=== PATIENT | male | born 1975 | race American Indian/Alaskan Native ===

== ENCOUNTER 2019-07-18 22:56 | Emergency (ER) | payer BC ==
[2019-07-18 23:04] VITALS: BP 140/89
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
--- NOTE | 2019-07-19 02:30 | XRay Report ---
HISTORY:left shoulder pain COMPARISON: None. TECHNIQUE: AP lateral and obliques views were obtained FINDINGS: Bones: No fracture or dislocation. Joint spaces: Maintained. Soft tissues: No significant abnormality. Additional findings: None. IMPRESSION: 1. No significant abnormality. Signer Name: Killian Pandya MD Signed: 07/19/2019 2:26 AM Workstation Name: [id number]
--- NOTE | 2019-07-19 02:30 | XRay Report ---
HISTORY:right arm pain COMPARISON: None. TECHNIQUE: AP lateral and obliques views were obtained FINDINGS: Bones: No fracture or dislocation. Joint spaces: Maintained. Soft tissues: No significant abnormality. Additional findings: None. IMPRESSION: 1. No significant abnormality. Signer Name: Killian Pandya MD Signed: 07/19/2019 2:25 AM Workstation Name: [id number]
== END 2019-07-19 03:01 | disposition home or self-care (01) ==
LOC: ED 22:56
DX: M79.631 Pain in right forearm (principal); M25.512 Pain in left shoulder; F17.200 Nicotine dependence, unspecified, uncomplicated; Z98.890 Other specified postprocedural states; Z79.899 Other long term (current) drug therapy
CPT/HCPCS: 99283

== ENCOUNTER 2019-10-21 02:22 | Emergency (ER) | payer BC ==
--- NOTE | 2019-10-21 05:21 | Emergency Department Report ---
HPI - General Chief Complaint: Extremity Injury, Lower Time Seen by Provider: 10/21/19 05:20 - HPI HPI: This is a 44-year-old male here report that he stubbed his left foot at his great toe today and it is hurting him. Pain is throbbing and worse with mo vement. Better with rest. Denies taking any medication. Denies any fall. Denies any numbness or tingling. ED Past Medical Hx - Past Medical History Previous Medical History?: Yes - Surgical History Past Surgical History?: Yes Additional Surgical History: left shoulder surgery - Family History Family history: no significant - Social History Smoking Status: Current Every Day Smoker Substance Use Type: Alcohol - Medications Home Medications: Home Medications Medication Instructions Recorded Confirmed Last Taken Type Ibuprofen [Motrin 800 MG tab] 800 mg PO Q8HR PRN #20 tablet 07/19/19 Unknown Rx Ibuprofen [Motrin] 800 mg PO Q8HR PRN #12 tablet 10/21/19 Unknown Rx ED Review of Systems ROS: Stated complaint: FOOT PAIN Other details as noted in HPI Constitutional: denies: chills, fever Respiratory: denies: cough, shortness of breath, wheezing Cardiovascular: denies: chest pain, palpitations Gastrointestinal: denies: nausea, vomiting Musculoskeletal: joint swelling, arthralgia. denies: back pain, myalgia Skin: denies: rash Neurological: denies: numbness, paresthesias Physical Exam - Physical Exam Vital Signs: Vital Signs 10/21/19 02:55 Temperature 97.3 F L Pulse Rate 96 H Respiratory 18 Rate Blood Pressure 126/75 O2 Sat by Pulse 99 Oximetry General: This is a 44-year-old male well-nourished well-developed in no acute distress. Patient is nontoxic in appearance Physical Exam: Head: Normocephalic atraumatic. Lungs: Clear to auscultated bilaterally, no rhonchi wheezes or rales. No use of accessory muscles. Neck: Supple, no tracheal deviation. No C-spine tenderness and full range of motion. CV: S1, S2. Regular rate . Skin: Clean dry and intact. No rash no lesion Extremity: No cce. + 2 pulses in all extremities, no neurovascular compromise except patient with mild swelling to the left great toe with tenderness to palpate and also painful with movement. No abrasion or laceration noted. No bony deformity noted Mood: Normal mood and behavior Back: Nontender to palpate to vertebral spine from C-spine to L-spine including sacral area. No paraspinal tenderness and no CVA tenderness. ED Course Vital Signs 10/21/19 02:55 Temperature 97.3 F L Pulse Rate 96 H Respiratory 18 Rate Blood Pressure 126/75 O2 Sat by Pulse 99 Oximetry - Reevaluation(s) Reevaluation #1: 10/21/19 06:05 Patient received Toradol 60 mg IM in emergency room. No acute distress. - Orthopedic Splinting/Casting Injury #1 Side: left Lower Extremity Injury Location: foot Lower Extremity Immobilizer: post-op shoe ED Medical Decision Making - Radiology Data Radiology results: report reviewed X-ray of left foot 3 views dictated by radiologist and report reviewed by myself. Please see be details below Findings [facility] [address] [place] [address] XRay Report Signed Patient: CHARLIE MENA MR#: [id number] : 1975 Acct:[id number] Age/Sex: 44 / M ADM Date: 10/21/19 Loc: ED Attending Dr: Ordering Physician: DEJA TOVAR Date of Service: 10/21/19 Procedure(s): XR foot 3+V LT Accession Number(s): [id number] cc: DEJA TOVAR Fluoro Time In Minutes: LEFT FOOT 3 VIEWS INDICATION / CLINICAL INFORMATION: Left foot injury with pain.... inside of foot/big toe. COMPARISON: None available. FINDINGS: BONES / JOINT(S): There is mild hallux valgus. There is no evidence of fracture or dislocation. SOFT TISSUES: There is mild soft tissue swelling along the medial aspect of the first metatarsal head/metatarsophalangeal joint. ADDITIONAL FINDINGS: None. Signer Name: Harry Wong MD Signed: 10/21/2019 5:54 AM Workstation Name: [id number] Transcribed By: RT Dictated By: Harry Wong MD Electronically Authenticated By: Harry Wong MD Signed Date/Time: 10/21/19 0554 DD/ 0552 TD/TT: - Medical Decision Making 44-year-old here after stepping is left foot great toe. He is complaining of pain and swelling to great toe. Physical findings shows mild swelling with tenderness to palpate and pain with range of motion. X-ray of left foot 3 view dictated by radiologist and report reviewed by myself. Shows mild soft tissue swelling at left great toe area. Mild hallux valgus but no fracture or dislocation. Patient was given pain medication emergency room with some relief of pain. Postop shoe given and patient given prescription for Motrin and to follow-up with orthopedic in 2 to 3 days. He voiced understanding - Differential Diagnosis Fracture versus dislocation, contusion, MSK pain Critical care attestation.: If time is entered above; I have spent that time in minutes in the direct care of this critically ill patient, excluding procedure time. ED Disposition Clinical Impression: Contusion of left great toe without damage to nail Qualifiers: Encounter type: initial encounter Qualified Code(s): S90.112A - Contusion of left great toe without damage to nail, initial encounter Disposition: - TO HOME OR SELFCARE Is pt being admited?: No Does the pt Need Aspirin: No Condition: Stable Instructions: Contusion in Adults (ED), Arthralgia (ED), RICE Therapy (ED) Additional Instructions: Please follow-up with orthopedic doctor in 2 to 3 days Take Motrin as directed with please do not take this medication on empty stomach as it can cause upset stomach. See discharge instruction and rice therapy Wear postop shoe to left foot until seen by orthopedic doctor If your condition worsens, return to the emergency room Referrals: CRYSTAL ROLDAN MD [Primary Care Provider] - 10/23/19 HARRY GUAMAN MD [Staff Physician] - 2-3 Days Forms: Work/School Release Form(ED)
[2019-10-21] MEDS ORDERED: KETOROLAC 60 MG/2 ML INJ IM ONE (05:22)
--- NOTE | 2019-10-21 05:58 | XRay Report ---
LEFT FOOT 3 VIEWS INDICATION / CLINICAL INFORMATION: Left foot injury with pain.... inside of foot/big toe. COMPARISON: None available. FINDINGS: BONES / JOINT(S): There is mild hallux valgus. There is no evidence of fracture or dislocation. SOFT TISSUES: There is mild soft tissue swelling along the medial aspect of the first metatarsal head /metatarsophalangeal joint. ADDITIONAL FINDINGS: None. Signer Name: Mateo Wong MD Signed: 10/21/2019 5:54 AM Workstation Name: [id number]
[2019-10-21 06:26] VITALS: BP 119/86
== END 2019-10-21 06:20 | disposition home or self-care (01) ==
LOC: ED 02:22
DX: S90.112A Contusion of left great toe without damage to nail, initial encounter (principal); F17.200 Nicotine dependence, unspecified, uncomplicated; Z98.890 Other specified postprocedural states; X58.XXXA Exposure to other specified factors, initial encounter; Y93.89 Activity, other specified; Y92.89 Other specified places as the place of occurrence of the external cause; Y99.8 Other external cause status
CPT/HCPCS: 73630; 96372; 99283; J1885

== ENCOUNTER 2019-11-25 21:32 | Emergency (ER) | payer SELFPAY ==
[2019-11-25] MEDS ORDERED: ASPIRIN 325 MG TAB PO ONE (21:42)
[2019-11-25] MEDS ORDERED: SODIUM CHLORIDE 0.9% 1000 ML 1,000 ML IV ONE (21:58)
--- NOTE | 2019-11-25 21:58 | Emergency Department Report ---
ED Chest Pain HPI - General Chief Complaint: Chest Pain Stated Complaint: CHEST PAIN Time Seen by Provider: 11/25/19 21:49 Source: patient Mode of arrival: Ambulatory Limitations: No Limitations - History of Present Illness Initial Comments: 44-year-old male presents to ED with palpitations, dizziness, chest pressure. Onset 2 hours ago after playing football. Patient denies pain, he states what he feels is pressure. Patient does report history of anxiety, for which he takes BuSpar. Patient admits to alcohol and cocaine use on yesterday. States did not get much sleep last night. Denies any drug use today. Patient denies shortness of breath, fever, cough, nausea or vomiting, leg pain or swelling. Patient denies any known contact with anyone who has tested positive for COVID- 19. MD Complaint: other -: hour(s) (2) Onset: during exertion Pain Location: substernal Pain Radiation: RUE Severity: moderate Quality: pressure Consistency: constant Improves With: nothing Worsens With: nothing re: denies: nausea, vomting, diaphoresis, dyspnea Other Symptoms: palpitations. denies: cough, fever, syncope, leg swelling - Related Data Previous Rx's Medication Instructions Recorded Last Taken Type Ibuprofen [Motrin 800 MG tab] 800 mg PO Q8HR PRN #20 tablet 07/19/19 Unknown Rx Ibuprofen [Motrin] 800 mg PO Q8HR PRN #12 tablet 10/21/19 Unknown Rx Allergies Allergy/AdvReac Type Severity Reaction Status Date / Time No Known Allergies Allergy Verified 11/25/19 21:41 Heart Score - HEART Score History: Slightly suspicious EKG: Normal Age: 45-65 Risk factors: 1-2 risk factors Troponin: < normal limit HEART Score: 2 ED Review of Systems ROS: Stated complaint: CHEST PAIN Other details as noted in HPI Comment: All other systems reviewed and negative Constitutional: denies: chills, fever Respiratory: denies: cough, shortness of breath Cardiovascular: chest pain, palpitations Gastrointestinal: denies: nausea, vomiting ED Past Medical Hx - Past Medical History Previous Medical History?: No - Surgical History Past Surgical History?: Yes Additional Surgical History: left shoulder surgery - Social History Smoking Status: Current Every Day Smoker Substance Use Type: Alcohol, Cocaine - Medications Home Medications: Home Medications Medication Instructions Recorded Confirmed Last Taken Type Ibuprofen [Motrin 800 MG tab] 800 mg PO Q8HR PRN #20 tablet 07/19/19 Unknown Rx Ibuprofen [Motrin] 800 mg PO Q8HR PRN #12 tablet 10/21/19 Unknown Rx ED Physical Exam - General Limitations: No Limitations General appearance: alert, in no apparent distress - Head Head exam: Present: atraumatic, normocephalic - Eye Eye exam: Present: normal appearance, PERRL, EOMI - ENT ENT exam: Present: mucous membranes moist - Neck Neck exam: Present: normal inspection - Respiratory Respiratory exam: Present: normal lung sounds bilaterally. Absent: respiratory distress - Cardiovascular Cardiovascular Exam: Present: normal rhythm, tachycardia - GI/Abdominal GI/Abdominal exam: Present: soft. Absent: distended, tenderness - Extremities Exam Extremities exam: Present: normal inspection - Neurological Exam Neurological exam: Present: alert, oriented X3 - Psychiatric Psychiatric exam: Present: normal affect, normal mood - Skin Skin exam: Present: warm, dry, intact, normal color ED Course Vital Signs 11/25/19 11/25/19 11/25/19 21:39 21:49 22:00 Temperature 97.3 F L Pulse Rate 134 H 114 H Respiratory 18 11 L Rate Blood Pressure 172/103 143/99 147/95 O2 Sat by Pulse 98 96 95 Oximetry 11/25/19 11/25/19 11/25/19 22:15 22:30 22:45 Temperature Pulse Rate 110 H 108 H 108 H Respiratory 21 22 13 Rate Blood Pressure 133/92 132/92 135/89 O2 Sat by Pulse 95 95 Oximetry 11/25/19 11/25/19 11/25/19 23:00 23:15 23:30 Temperature Pulse Rate 109 H 102 H 99 H Respiratory 29 H 26 H 18 Rate Blood Pressure 145/96 136/90 146/101 O2 Sat by Pulse 94 97 Oximetry 11/25/19 11/25/19 11/26/19 23:45 23:46 00:00 Temperature Pulse Rate 91 H 95 H 89 Respiratory 14 18 12 Rate Blood Pressure 138/95 138/95 134/93 O2 Sat by Pulse 98 97 97 Oximetry 11/26/19 11/26/19 11/26/19 00:15 00:30 00:45 Temperature Pulse Rate 90 83 85 Respiratory 17 16 12 Rate Blood Pressure 141/95 131/91 138/93 O2 Sat by Pulse 97 96 Oximetry 11/26/19 11/26/19 11/26/19 01:00 01:15 01:30 Temperature Pulse Rate 84 84 Respiratory 17 22 Rate Blood Pressure 136/91 141/97 141/97 O2 Sat by Pulse 99 95 92 Oximetry 11/26/19 02:17 Temperature 97.3 F L Pulse Rate 84 Respiratory 22 Rate Blood Pressure O2 Sat by Pulse 92 Oximetry ED Medical Decision Making - Lab Data Result diagrams: 11/25/19 21:47 11/25/19 21:47 - Radiology Data Radiology results: report reviewed, image reviewed - Medical Decision Making 44 yo M w/ chest pain 1 day after snorting cocaine. EKG shows no ST changes. Troponin negative x 2, CXR normal. D-dimer negative. Tachycardia resolved. Pt feeling much better at this time. Outpt f/u advised. Return precautions given. - Differential Diagnosis ACS, anxiety, PE Critical care attestation.: If time is entered above; I have spent that time in minutes in the direct care of this critically ill patient, excluding procedure time. ED Disposition Clinical Impression: Palpitations, Chest pain Disposition: TO HOME OR SELFCARE Is pt being admited?: No Condition: Stable Instructions: Chest Pain (ED), Palpitations (ED), Anxiety (ED) Referrals: PRIMARY CARE [Primary Care Provider] - 3-5 Days [facility] [Provider Group] - 3-5 Days Time of Disposition: 01:27
--- NOTE | 2019-11-25 22:10 | XRay Report ---
CHEST 1 VIEW INDICATION: Chest Pain COMPARISON: None FINDINGS: Support devices: None Heart: Normal Lungs/Pleura: No acute pulmonary or pleural findings. IMPRESSION: 1. No acute disease. Signer Name: Carlo Ozuna MD Signed: 11/25/2019 10:06 PM Workstation Name: [id number]
[2019-11-25 22:17] LABS: Basophils # (Auto) 0.1 K/mm3 (0.0-0.1); Basophils % (Auto) 0.9 % (0.0-1.8); Eosinophils % (Auto) 0.2 % (0.0-4.3); Hematocrit 45.6 % (35.5-45.6); Hemoglobin 15.6 gm/dl (11.8-15.2); Lymphocytes # (Auto) 1.6 K/mm3 (1.2-5.4); Lymphocytes % (Auto) 18.8 % (13.4-35.0); Mean Corpuscular HGB Conc 34 % (32-34); Mean Corpuscular Volume 93 fl (84-94); Monocytes # (Auto) 0.6 K/mm3 (0.0-0.8); Monocytes % (Auto) 7.2 % (0.0-7.3); Platelet Count 148 K/mm3 (140-440); Red Blood Count 4.93 M/mm3 (3.65-5.03); Red Cell Distribution Width 14.1 % (13.2-15.2)
[2019-11-25 22:26] LABS: INR 0.98 (0.87-1.13); Partial Thromboplastin Time 28.3 Sec. (24.2-36.6)
[2019-11-25 22:39] LABS: BUN/Creatinine Ratio 16; Blood Urea Nitrogen 21 mg/dL (9-20); Calcium 10.1 mg/dL (8.4-10.2); Hemolysis Index 9
[2019-11-26 02:16] VITALS: BP 141/97
== END 2019-11-26 02:17 | disposition home or self-care (01) ==
LOC: ED 21:32
DX: R07.89 Other chest pain (principal); R00.2 Palpitations; F17.200 Nicotine dependence, unspecified, uncomplicated; F14.10 Cocaine abuse, uncomplicated; Z98.890 Other specified postprocedural states
CPT/HCPCS: 36415; 71045; 80048; 84484; 85025; 85379; 85610; 85730; 93005; 96360; 99284; J7030

== ENCOUNTER 2020-05-09 08:13 | Emergency (ER) | payer SELFPAY ==
[2020-05-09] MEDS ORDERED: ASPIRIN 325 MG TAB PO ONE (08:30)
[2020-05-09 08:55] LABS: Basophils % (Auto) 0.5 % (0.0-1.8); Eosinophils # (Auto) 0.1 K/mm3 (0.0-0.4); Hemoglobin 14.3 gm/dl (11.8-15.2); Lymphocytes # (Auto) 1.6 K/mm3 (1.2-5.4); Lymphocytes % (Auto) 19.5 % (13.4-35.0); Mean Corpuscular HGB Conc 34 % (32-34); Mean Corpuscular Volume 92 fl (84-94); Monocytes # (Auto) 0.6 K/mm3 (0.0-0.8); Monocytes % (Auto) 7.2 % (0.0-7.3); Platelet Count 120 K/mm3 (140-440); Red Blood Count 4.57 M/mm3 (3.65-5.03); Red Cell Distribution Width 13.4 % (13.2-15.2)
[2020-05-09 09:14] LABS: BUN/Creatinine Ratio 15; Blood Urea Nitrogen 18 mg/dL (9-20); Calcium 9.3 mg/dL (8.4-10.2); Hemolysis Index 5
--- NOTE | 2020-05-09 09:51 | XRay Report ---
CHEST 1 VIEW INDICATION / CLINICAL INFORMATION: Chest Pain. COMPARISON: 11/25/2019 FINDINGS: SUPPORT DEVICES: None. HEART / MEDIASTINUM: No significant abnormality. LUNGS / PLEURA: No significant pulmonary or pleural abnormality. No pneumothorax. ADDITIONAL FINDINGS: No significant additional findings. IMPRESSION: No acute disease or interval change from 11/25/2019 Signer Name: Laith Sargent MD FACR Signed: 05/09/2020 9:47 AM Workstation Name: [id number]
--- NOTE | 2020-05-09 11:39 | Emergency Department Report ---
ED Chest Pain HPI - General Chief Complaint: Chest Pain Stated Complaint: CHEST PAIN Time Seen by Provider: 05/09/20 11:23 Source: patient Mode of arrival: Ambulatory Limitations: No Limitations - History of Present Illness Initial Comments: 45-year-old -[place] male with no past medical. Patient presents with chest pain and states that was intermittent and sharp but no pain in the last hour. Patient states that his chest feels much better. He denies any shortness of breath, nausea vomiting, diaphoresis, headache. Patient denies any fever no chills no vomiting no diarrhea. 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 Patient does have a primary care provider Dr. Marie and last saw him about 10 months ago. Patient reports he does not take any medications on a daily basis has no known drug allergies no past medical history but does state that his blood pressure was elevated the last time he saw his primary care provider and he felt that it was not a problem. MD Complaint: chest pain -: This morning Onset: during exertion Pain Location: substernal Pain Radiation: none Severity: mild Severity scale (0 -10): 4 Quality: sharp Consistency: intermittent Improves With: nothing Worsens With: nothing re: denies: nausea, vomting, diaphoresis, dyspnea, sense of impending doom, other Other Symptoms: denies: cough, fever, syncope, rash, acid taste in mouth, leg sw elling Treatments Prior to Arrival: none - Related Data Previous Rx's Medication Instructions Recorded Last Taken Type Ibuprofen [Motrin 800 MG tab] 800 mg PO Q8HR PRN #20 tablet 07/19/19 Unknown Rx Ibuprofen [Motrin] 800 mg PO Q8HR PRN #12 tablet 10/21/19 Unknown Rx amLODIPine 5 mg PO DAILY #30 tab 05/09/20 Unknown Rx Allergies Allergy/AdvReac Type Severity Reaction Status Date / Time No Known Allergies Allergy Verified 11/25/19 21:41 Heart Score - HEART Score History: Slightly suspicious EKG: Normal Age: < 45 Risk factors: No known risk factors Troponin: < normal limit HEART Score: 0 ED Review of Systems ROS: Stated complaint: CHEST PAIN Other details as noted in HPI Comment: All other systems reviewed and negative ED Past Medical Hx - Past Medical History Previous Medical History?: No - Surgical History Past Surgical History?: Yes Additional Surgical History: left shoulder surgery - Social History Smoking Status: Current Every Day Smoker Substance Use Type: Alcohol, Cocaine - Medications Home Medications: Home Medications Medication Instructions Recorded Confirmed Last Taken Type Ibuprofen [Motrin 800 MG tab] 800 mg PO Q8HR PRN #20 tablet 07/19/19 Unknown Rx Ibuprofen [Motrin] 800 mg PO Q8HR PRN #12 tablet 10/21/19 Unknown Rx amLODIPine 5 mg PO DAILY #30 tab 05/09/20 Unknown Rx ED Physical Exam - General Limitations: No Limitations General appearance: alert, in no apparent distress - Head Head exam: Present: atraumatic, normocephalic - Eye Eye exam: Present: normal appearance - ENT ENT exam: Present: mucous membranes moist - Neck Neck exam: Present: normal inspection - Respiratory Respiratory exam: Present: normal lung sounds bilaterally. Absent: respiratory distress, chest wall tenderness - Cardiovascular Cardiovascular Exam: Present: regular rate, normal rhythm. Absent: systolic murmur, diastolic murmur, rubs, gallop - GI/Abdominal GI/Abdominal exam: Present: soft, normal bowel sounds - Rectal Rectal exam: Present: deferred - Extremities Exam Extremities exam: Present: normal inspection - Back Exam Back exam: Present: normal inspection - Neurological Exam Neurological exam: Present: alert, oriented X3 - Psychiatric Psychiatric exam: Present: normal affect, normal mood - Skin Skin exam: Present: warm, dry, intact, normal color. Absent: rash ED Course Vital Signs 05/09/20 05/09/20 08:26 13:16 Temperature 97.7 F 97.6 F Pulse Rate 91 H 71 Respiratory 18 16 Rate Blood Pressure 149/101 115/74 O2 Sat by Pulse 98 99 Oximetry CHRISTIANO score - Christiano Score Age > 65: (0) No Aspirin use within the Past 7 Days: (0) No 3 or more CAD Risk Factors: (0) No 2 or more Angina events in past 24 hrs: (0) No Known CAD with more than 50% Stenosis: (0) No Elevated Cardiac Markers: (0) No ST Deviation Greater than 0.5mm: (0) No CHRISTIANO Score: 0 ED Medical Decision Making - Lab Data Result diagrams: 05/09/20 08:38 05/09/20 08:38 - Radiology Data Radiology results: report reviewed Print Report Referring Physician:ED DOCPatient Name:CHARLIE MENAPatient ID:[id number] of :[id number]:MaleAccession:[id number] Date:[id number] Status:Finalized Findings [facility] [address] [place] [address] XRay Report Signed Patient: CHARLIE MENA MR#: [id number] : 1975 Acct:[id number] Age/Sex: 45 / M ADM Date: 05/09/20 Loc: ED Attending Dr: Ordering Physician: CAROL POWERS MD Date of Service: 05/09/20 Procedure(s): XR chest 1V ap Accession Number(s): [id number] cc: ED MD GIO Fluoro Time In Minutes: CHEST 1 VIEW INDICATION / CLINICAL INFORMATION: Chest Pain. COMPARISON: 11/25/2019 FINDINGS: SUPPORT DEVICES: None. HEART / MEDIASTINUM: No significant abnormality. LUNGS / PLEURA: No significant pulmonary or pleural abnormality. No pneumothorax. ADDITIONAL FINDINGS: No significant additional findings. IMPRESSION: No acute disease or interval change from 11/25/2019 Signer Name: Laith Sargent MD FACR Signed: 05/09/2020 9:47 AM Workstation Name: [id number] Transcribed By: MS Dictated By: Laith Sargent MD Electronically Authenticated By: Laith Sargent MD - Medical Decision Making 45-year-old -[place] male with no past medical. Patient presents with c hest pain and states that was intermittent and sharp but no pain in the last hour. Patient states that his chest feels much better. He denies any shortness of breath, nausea vomiting, diaphoresis, headache. Patient denies any fever no chills no vomiting no diarrhea. 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 Patient does have a primary care provider Dr. Marie and last saw him about 10 months ago. Patient reports he does not take any medications on a daily basis has no known drug allergies no past medical history but does state that his blood pressure was elevated the last time he saw his primary care provider and he felt that it was not a p roblem. Patient's labs are stable. Waiting for the next troponin that scheduled to 30. I discussed with patient if all labs are within normal at discharge will consider placing him on amlodipine 5 mg daily and to follow-up with Dr. Caraballo in the next 2 weeks to have a repeat blood pressure check and discuss discontinuation of the amlodipine. Also discussed with patient it would not hurt if he takes a baby aspirin daily. Patient agrees with plan. Critical care attestation.: If time is entered above; I have spent that time in minutes in the direct care of this critically ill patient, excluding procedure time. ED Disposition Clinical Impression: Atypical chest pain, Hypertension Disposition: TO HOME OR SELFCARE Is pt being admited?: No Does the pt Need Aspirin: No Condition: Stable Instructions: Chest Pain (ED), Hypertension (ED) Additional Instructions: Labs are all within normal limits chest x-ray is negative. I will place her on a low-dose of Norvasc I like for you to take a baby aspirin daily and to follow- up with your primary care provider. Prescriptions: amLODIPine 5 mg PO DAILY #30 tab Referrals: PRIMARY CAREMD [Primary Care Provider] - 3-5 Days CRYSTAL ROLDAN MD [Staff Physician] - 3-5 Days BRENDA TAYLOR MD [Staff Physician] - 3-5 Days Forms: Work/School Release Form(ED)
[2020-05-09 17:32] VITALS: BP 141/88
== END 2020-05-09 14:45 | disposition home or self-care (01) ==
LOC: ED 08:13
DX: R07.89 Other chest pain (principal); I10 Essential (primary) hypertension; F17.200 Nicotine dependence, unspecified, uncomplicated; F14.10 Cocaine abuse, uncomplicated; Z79.899 Other long term (current) drug therapy
CPT/HCPCS: 36415; 71045; 80048; 84484; 85025; 93005